=== PATIENT | female | born 1990 | race Caucasian/White ===

== ENCOUNTER 2022-10-12 09:16 | Emergency (ER) | payer SELFPAY ==
[~2022-10-12] VITALS: Ht 162.6 cm; Wt 98.8 kg
[2022-10-12] MEDS ORDERED: HYDROcodone-ACET 10/325MG TAB PO ONE (10:00)
[2022-10-12 10:16] LABS: Urine Bacteria NONE SEEN /hpf (None Seen); Urine Blood 3+ /uL (Negative); Urine Mucus FEW (None Seen); Urine Specific Gravity 1.023 (1.001-1.035); Urine WBC 4 /hpf (0 - 5)
[2022-10-12 10:43] VITALS: BP 141/97
[2022-10-12] MEDS ORDERED: IBUP800T27 PO (11:55)
[2022-10-12] MEDS ORDERED: PRED20TA2 PO (11:55)
== END 2022-10-12 12:00 | disposition home or self-care (01) ==
LOC: ER 09:16
DX: G89.29 Other chronic pain (principal); M54.42 Lumbago with sciatica, left side; M54.41 Lumbago with sciatica, right side; Z88.6 Allergy status to analgesic agent; Z98.890 Other specified postprocedural states
CPT/HCPCS: 72170; 74176; 81001; 81025